=== PATIENT | male | born 1975 | race Caucasian/White ===

== ENCOUNTER 2024-10-14 05:01 | Emergency (ER) | payer OTHER, SELFPAY ==
[2024-10-14 05:12] VITALS: BP 135/90; PULSE 76; TEMP 36.8; O2SAT 97; BMI 33.1
--- NOTE | 2024-10-14 05:21 | CT_ITS ---
The [address] [address] Patient Name: RENZO TEAGUE MRN: [id number] date: 1975 Sex: M Assigned Patient Location: ER Current Patient Location: ER Accession/Order Number: [id number] Exam Date: 10/14/2024 08:15 Report Date: 10/14/2024 09:06 At the request of: ANDRÉS MARKER Procedure: CT abdomen pelvis w con EXAM: CT abdomen pelvis w con HISTORY: rectal pain, chills PO and IV contrast please COMPARISON: None. TECHNIQUE: Routine CT abdomen/pelvis with intravenous contrast. FINDINGS: Lung bases: Mild dependent atelectasis at both lung bases. Solid organs: The liver is fatty infiltrated. There is a 2.8 mm hypodense subcapsular lesion at the dome of the liver which is too small to further characterize however most commonly a cyst. There is a 1.3 cm focus of vague enhancement at the dome of the liver (series 3 image 7). The gallbladder, biliary tree, pancreas and bilateral adrenal glands are unremarkable. There are a few calcified granuloma within the spleen. There are bilateral renal cysts measuring 0.6 cm on the right and 1.1 cm on the left. Bowel: There is a 1.2 x 2 x 1.5 cm fluid collection near the anus. Correlate with clinical findings of a perianal abscess (axial image 144, coronal image 76 and sagittal image 55). The rectum is unremarkable. The bowel gas pattern is nonobstructive with a moderately large amount of stool within the colon. There are colonic diverticula without diverticulitis. The appendix is unremarkable. The distal esophagus, stomach and small bowel are unremarkable. Vasculature: Mild atheromatous plaque along the abdominal aorta and iliac arteries. The IVC is unremarkable. Inflammation: There is no free air or free fluid. Lymphadenopathy: There are no pathologically enlarged lymph nodes. Pelvis: The unopacified urinary bladder is unremarkable. The prostate gland is mildly enlarged. There is fat extending into both internal canals. Osseous: There is a small amount of fat extending into the umbilicus. Moderately severe discogenic degenerative changes at L5-S1. CT/CT abdomen pelvis w con IMPRESSION: There is a 1.2 x 2 x 1.5 cm fluid collection near the anus. Correlate with clinical findings of a perianal abscess (axial image 144, coronal image 76 and sagittal image 55). The rectum is unremarkable. The bowel gas pattern is nonobstructive with a moderately large amount of stool within the colon. There are colonic diverticula without diverticulitis. The liver is fatty infiltrated. There is a 2.8 mm hypodense subcapsular lesion at the dome of the liver which is too small to further characterize however most commonly a cyst. There is a 1.3 cm focus of vague enhancement at the dome of the liver processes series 3 image 7). A scheduled MRI the liver is recommended for detailed evaluation. There are bilateral renal cysts measuring 0.6 cm on the right and 1.1 cm on the left. The prostate gland is mildly enlarged. There is fat extending into both inguinal canals. There are moderately severe discogenic degenerative changes at L5-S1. Electronically authenticated by: PETE PHILLIP Date: 10/14/2024 09:06
--- NOTE | 2024-10-14 05:23 | ED_ITS ---
HPI HPI - General Adult General Chief complaint: Skin/Abscess/Foreign Body Stated complaint: SKIN OTHER Time Seen by Provider: 10/14/24 05:07 Source: patient Mode of arrival: walk-in History of Present Illness HPI narrative: This 49-year-old male with a history of a pilonidal cyst and a left inguinal hernia presents for evaluation of rectal pain. The patient states he has been having pain for the past 4 to 7 days but it has become increasingly more painful to sit and/or get up from a sitting position. He has not had any bloody stool or mucoid stool. He states he has been having some chills and sweats. He had a history of a pilonidal cyst in his 20s that he never had taking care of and was concerned that it was related to that. He has not had any nausea or vomiting. He denies any urinary symptoms. He denies any anal intercourse or manipulation. He denies any weight loss. He has never had a colonoscopy but knows that he needs to get one done in the near future. Related Data Home Medications ?Medication ?Instructions ?Recorded ?Confirmed aspirin 81 mg tablet,delayed mg 10/14/24 release levothyroxine 150 mcg tablet mcg 10/14/24 metoprolol tartrate 25 mg tablet mg 10/14/24 nitroglycerin 0.4 mg sublingual mg 10/14/24 tablet Allergies Allergy/AdvReac Type Severity Reaction Status Date / Time ciprofloxacin (From Cipro) Allergy Mild Swelling Verified 10/14/24 05:11 of the Eye Opioid HPI Opioid Management Most Recent Opioid Data: Last Pain Scale 2 10/14/24 05:39 10/14/24 Last MAR Pain Assessment 10/14/24 05:39 Review of Systems ROS Status of ROS 10 or more systems reviewed and unremark able except as noted in history and below PFSH PFSH Medical History (Updated 10/14/24 @ 06:53 by Shannan Hammond MD) Thyroid cancer ?C73 - Malignant neoplasm of thyroid gland (ICD-10) Surgical History (Updated 10/14/24 @ 06:02 by Du Red RN) Hx of heart artery stent ?Z95.5 - Presence of coronary angioplasty implant and graft (ICD-10) Social History Little interest or pleasure in doing things: not at all Feeling down, depressed, or hopeless: not at all Exam Narrative Exam Narrative: Exam chaperoned by Du FERREIRA Vital signs and Nursing Notes reviewed: Patient is afebrile with a normal pulse, normal blood pressure, he is not hypoxic with pulse ox of 97% on room air she was General: Awake, alert, oriented, uncomfortable when moving about the stretcher, nontoxic overweight male HEENT: Normocephalic atraumatic, mucous membranes are moist and pink, eyes are clear, normal conjunctiva, vision is grossly intact Chest: Lungs are clear to auscultation with good air entry, there is no wheezing rhonchi or rales appreciated no accessory muscle use, patient is speaking in complete sentences-no chest wall tenderness to palpation CVS: Regular rate and rhythm S1-S2, no murmurs rubs or gallops, pulses are brisk and equal bilaterally ABD: Soft, nondistended, nontender, no rebound guarding or rigidity, bowel sounds are normal, no pulsatile masses appreciated, self reducing left inguinal hernia, there is tenderness without notable deformity at the 4 to 6 o'clock position at the patient's rectum, no appreciable hemorrhoids or fissures noted, no skin breakdown or signs of necrotizing fasciitis : Normal exam, testes are descended bilaterally, self reducing left inguinal hernia noted when the patient coughs Extremities: Moving all extremities, no lower extremity tenderness or swelling noted, negative Homans' sign, pulses are brisk and equal bilaterally Skin: Normal in appearance without rash,pallor, petechiae or purpura Neuro: No focal deficits Constitutional Vital Signs, click to edit/add: Last Vital Signs Temp 98.3 F 10/14/24 05:12 Pulse 76 10/14/24 05:12 Resp 18 10/14/24 05:12 BP 135/90 10/14/24 05:12 Pulse Ox 97 10/14/24 05:12 O2 Del Method Room Air 10/14/24 05:12 Course Vital Signs Vital signs: Vital Signs Temperature 98.3 F 10/14/24 05:12 Pulse Rate 76 10/14/24 05:12 Respiratory Rate 18 10/14/24 05:12 Blood Pressure 135/90 10/14/24 05:12 Pulse Oximetry 97 10/14/24 05:12 Oxygen Delivery Method Room Air 10/14/24 05:12 Temperature 98.3 F 10/14/24 05:12 Pulse Rate 76 10/14/24 05:12 Respiratory Rate 18 10/14/24 05:12 Blood Pressure 135/90 10/14/24 05:12 Pulse Oximetry 97 10/14/24 05:12 Oxygen Delivery Method Room Air 10/14/24 05:12 Medical Decision Making MDM Narrative Medical decision making narrative: This 49-year-old male with no significant medical history presents for evaluation of pain in his rectal area/anus for the past 4 to 7 days. The pain has become increasingly severe over the past 24 to 48 hours. The patient came to the emergency department this morning after not being able to sleep all night. He is having pain with sitting and trying to get up from a sitting position. He has been having normal bowel movements. He does have a history of a pilonidal cyst in the past but his pain is not in this area. He has a history of a longstanding left inguinal hernia. This does not appear to be related to the pain he is currently having in his rectal area where it is exquisitely tender to palpation without any other notable abnormality. He did not have any hemorrhoids fissures or other concerning findings. There was nothing concerning for necrotizing fasciitis. He is not diabetic. The patient was driving and an IV was placed and he was medicated with Toradol and 3 g of IV Unasyn. CBC with differential, comprehensive metabolic profile, lactic acid and CT scan with oral and IV contrast was ordered. The patient's white count is minimally elevated at 12.9. Electrolytes are normal. Liver function tests are normal. Lactic acid is normal at 0.9. He will be signed out to the incoming physician at [address] scan and r eevaluation. Lab Data Labs: Lab Results 10/14/24 Range/Units 05:30 WBC 12.9 H (4.0-11.0) 10^3/uL RBC 5.14 (4.70-6.10) 10^6/uL Hgb 15.3 (14.0-18.0) g/dL Hct 44.1 (42.0-54.0) % MCV 85.8 (80.0-94.0) fL MCH 29.8 (25.9-34.0) pg MCHC 34.7 (29.9-35.2) g/dL RDW 13.6 (11.0-15.0) % Plt Count 242 (150-450) 10^3/uL MPV 9.3 L (9.5-13.5) fL Seg Neuts % (Manual) 58.0 (43.0-75.0) Lymphocytes % (Manual) 19.0 L (20.5-60.0) % Atypical Lymphs % (Man) 8.0 % Monocytes % (Manual) 13.0 H (1.7-12.0) % Eosinophils % (Manual) 2.0 (0.9-7.0) % Basophils % (Manual) 0.0 L (0.2-2.0) % Neutrophils # (Manual) 7.48 H (1.4-6.5) 10^3/uL Lymphocytes # (Manual) 2.45 (1.20-3.80) 10^3/uL Abs Atypical Lymphs Man 1.03 Monocytes # (Manual) 1.67 H (0.30-0.80) 10^3/uL Eosinophils # (Manual) 0.25 (0.00-0.70) 10^3/uL Basophils # (Manual) 0.00 (0.00-0.10) 10^3/uL Hypersegmented Neuts 2+ Toxic Granulation 2+ Sodium 139 (136-145) mmol/L Potassium 3.7 (3.5-5.1) mmol/L Chloride 105 (98-107) mmol/L Carbon Dioxide 27.5 (21.0-32.0) mmol/L Anion Gap 10.2 BUN 12.0 (7.0-18.0) mg/dL Creatinine 1.23 (0.70-1.30) mg/dL Est GFR ( Amer) >60 (>=60 mL/min/1.73m^2) Est GFR (Non-Af Amer) >60 (>=60 mL/min/1.73m^2) BUN/Creatinine Ratio 9.8 Glucose 108 H (74-106) mg/dL Lactate 0.9 (0.4-2.0) mmol/L Calcium 9.1 (8.5-10.1) mg/dL Total Bilirubin 0.3 (0.2-1.0) mg/dL AST 16 (15-37) U/L ALT 29 (16-63) U/L Alkaline Phosphatase 52 (46-116) U/L Total Protein 7.3 (6.4-8.2) g/dL Albumin 3.8 (3.4-5.0) g/dL Globulin 3.5 g/dL Albumin/Globulin Ratio 1.1 Discharge Plan Discharge Chief Complaint: Skin/Abscess/Foreign Body Clinical Impression: Anal or rectal pain Patient Disposition: Still a Patient Time of Disposition Decision: 06:53 Prescriptions / Home Meds: No Action aspirin 81 mg tablet,delayed release (DR/EC) levothyroxine 150 mcg tablet nitroglycerin 0.4 mg tablet, sublingual metoprolol tartrate 25 mg tablet Print Language: Kazakh Referrals: [facility] [Primary Care Provider] - 1 week
[2024-10-14 05:35] LABS: Hematocrit 44.1 % (42.0-54.0); Hemoglobin 15.3 g/dL (14.0-18.0); Mean Corpuscular HGB Conc 34.7 g/dL (29.9-35.2); Mean Corpuscular Hemoglobin 29.8 pg (25.9-34.0); Mean Corpuscular Volume 85.8 fL (80.0-94.0); Mean Platelet Volume 9.3 fL (9.5-13.5); Platelet Count 242 10^3/uL (150-450); Red Blood Count 5.14 10^6/uL (4.70-6.10); Red Cell Distribution Width 13.6 % (11.0-15.0); White Blood Count 12.9 10^3/uL (4.0-11.0)
[2024-10-14] MEDS: KETOROLAC TROMETHAMINE 30 MG/ML VIAL IVP (05:39)
[2024-10-14] MEDS: AMPICILLIN SODIUM/SULBACTAM NA 3 GM in 0.9 % SODIUM CHLORIDE 100 ML IV (05:50)
[2024-10-14 05:53] LABS: Atypical Lymphocytes Abs Man 1.03; Eosinophils Absolute Manual 0.25 10^3/uL (0.00-0.70); Hypersegmented Neutrophils 2+; Lymphocytes Absolute Manual 2.45 10^3/uL (1.20-3.80); Monocytes Absolute Manual 1.67 10^3/uL (0.30-0.80); Segmented Neut Absolute Manual 7.48 10^3/uL (1.4-6.5); Toxic Granulation 2+
[2024-10-14 05:54] LABS: Alanine Aminotransferase 29 U/L (16-63); Albumin Globulin Ratio 1.1; Albumin Level 3.8 g/dL (3.4-5.0); Alkaline Phosphatase 52 U/L (46-116); Anion Gap 10.2; Aspartate Amino Transferase 16 U/L (15-37); BUN Creatinine Ratio 9.8; Bilirubin Total 0.3 mg/dL (0.2-1.0); Calcium 9.1 mg/dL (8.5-10.1); Carbon Dioxide 27.5 mmol/L (21.0-32.0); Chloride 105 mmol/L (98-107); Estimated GFR (African America >60 (>=60 mL/min/1.73m^2); Estimated GFR (Non-African Ame >60 (>=60 mL/min/1.73m^2); Globulin 3.5 g/dL; Glucose 108 mg/dL (74-106); Potassium 3.7 mmol/L (3.5-5.1); Sodium 139 mmol/L (136-145); Total Protein 7.3 g/dL (6.4-8.2)
[2024-10-14 05:55] LABS: Lactate/Lactic Acid 0.9 mmol/L (0.4-2.0)
--- NOTE | 2024-10-14 05:58 | PC.NURSE ---
the electronic gluing machine operator in room talking to patient about drinking oral contrast for his ct, which will take this morning around 07:30am
--- NOTE | 2024-10-14 10:25 | ED.GENADUL1 ---
HPI HPI - General Adult General Chief complaint: Skin/Abscess/Foreign Body Stated complaint: SKIN OTHER Time Seen by Provider: 10/14/24 05:07 Source: patient Mode of arrival: walk-in History of Present Illness HPI narrative: 49-year-old male presents to the emergency department and was initially seen by Dr. Hammond and signed out to me after discussing the case with her thoroughly. Please see her full history and physical exam. Related Data Home Medications ?Medication ?Instructions ?Recorded ?Confirmed aspirin 81 mg tablet,delayed mg 10/14/24 release levothyroxine 150 mcg tablet mcg 10/14/24 metoprolol tartrate 25 mg tablet mg 10/14/24 nitroglycerin 0.4 mg sublingual mg 10/14/24 tablet Previous Rx's ?Medication ?Instructions ?Recorded amoxicillin 875 mg-potassium 1 tab PO BID #14 tabs 10/14/24 clavulanate 125 mg tablet Allergies Allergy/AdvReac Type Severity Reaction Status Date / Time ciprofloxacin (From Cipro) Allergy Mild Swelling Verified 10/14/24 05:11 of the Eye Opioid HPI Opioid Management Most Recent Opioid Data: Last Pain Scale 2 10/14/24 05:39 10/14/24 Last MAR Pain Assessment 10/14/24 05:39 PFSH PFSH Medical History (Updated 10/14/24 @ 10:19 by Rom Kessler MD) Thyroid cancer ?C73 - Malignant neoplasm of thyroid gland (ICD-10) Surgical History (Updated 10/14/24 @ 06:02 by Du Red RN) Hx of heart artery stent ?Z95.5 - Presence of coronary angioplasty implant and graft (ICD-10) Social History Little interest or pleasure in doing things: not at all Feeling down, depressed, or hopeless: not at all Exam Constitutional Vital Signs, click to edit/add: Last Vital Signs Temp 98.3 F 10/14/24 05:12 Pulse 76 10/14/24 05:12 Resp 18 10/14/24 05:12 BP 135/90 10/14/24 05:12 Pulse Ox 97 10/14/24 05:12 O2 Del Method Room Air 10/14/24 05:12 Course Vital Signs Vital signs: Vital Signs Temperature 98.3 F 10/14/24 05:12 Pulse Rate 76 10/14/24 05:12 Respiratory Rate 18 10/14/24 05:12 Blood Pressure 135/90 10/14/24 05:12 Pulse Oximetry 97 10/14/24 05:12 Oxygen Delivery Method Room Air 10/14/24 05:12 Temperature 98.3 F 10/14/24 05:12 Pulse Rate 76 10/14/24 05:12 Respiratory Rate 18 10/14/24 05:12 Blood Pressure 135/90 10/14/24 05:12 Pulse Oximetry 97 10/14/24 05:12 Oxygen Delivery Method Room Air 10/14/24 05:12 Medical Decision Making MDM Narrative Medical decision making narrative: Perianal abscess is identified on the CAT scan. Case discussed with Dr. Voss who recommends being discharged home on Augmentin. The patient has already received Unasyn here and the patient is referred to general surgery for outpatient follow-up. Treatment diagnosis and follow-up were discussed with the patient. Lab Data Lab results reviewed: Yes I reviewed the patient's lab results Labs: Lab Results 10/14/24 Range/Units 05:30 WBC 12.9 H (4.0-11.0) 10^3/uL RBC 5.14 (4.70-6.10) 10^6/uL Hgb 15.3 (14.0-18.0) g/dL Hct 44.1 (42.0-54.0) % MCV 85.8 (80.0-94.0) fL MCH 29.8 (25.9-34.0) pg MCHC 34.7 (29.9-35.2) g/dL RDW 13.6 (11.0-15.0) % Plt Count 242 (150-450) 10^3/uL MPV 9.3 L (9.5-13.5) fL Seg Neuts % (Manual) 58.0 (43.0-75.0) Lymphocytes % (Manual) 19.0 L (20.5-60.0) % Atypical Lymphs % (Man) 8.0 % Monocytes % (Manual) 13.0 H (1.7-12.0) % Eosinophils % (Manual) 2.0 (0.9-7.0) % Basophils % (Manual) 0.0 L (0.2-2.0) % Neutrophils # (Manual) 7.48 H (1.4-6.5) 10^3/uL Lymphocytes # (Manual) 2.45 (1.20-3.80) 10^3/uL Abs Atypical Lymphs Man 1.03 Monocytes # (Manual) 1.67 H (0.30-0.80) 10^3/uL Eosinophils # (Manual) 0.25 (0.00-0.70) 10^3/uL Basophils # (Manual) 0.00 (0.00-0.10) 10^3/uL Hypersegmented Neuts 2+ Toxic Granulation 2+ Sodium 139 (136-145) mmol/L Potassium 3.7 (3.5-5.1) mmol/L Chloride 105 (98-107) mmol/L Carbon Dioxide 27.5 (21.0-32.0) mmol/L Anion Gap 10.2 BUN 12.0 (7.0-18.0) mg/dL Creatinine 1.23 (0.70-1.30) mg/dL Est GFR ( Amer) >60 (>=60 mL/min/1.73m^2) Est GFR (Non-Af Amer) >60 (>=60 mL/min/1.73m^2) BUN/Creatinine Ratio 9.8 Glucose 108 H (74-106) mg/dL Lactate 0.9 (0.4-2.0) mmol/L Calcium 9.1 (8.5-10.1) mg/dL Total Bilirubin 0.3 (0.2-1.0) mg/dL AST 16 (15-37) U/L ALT 29 (16-63) U/L Alkaline Phosphatase 52 (46-116) U/L Total Protein 7.3 (6.4-8.2) g/dL Albumin 3.8 (3.4-5.0) g/dL Globulin 3.5 g/dL Albumin/Globulin Ratio 1.[address] scan - abdomen: Radiologist's impression: ITS Impressions Abdomen/Pelvis CT 10/14/24 05:21 IMPRESSION: There is a 1.2 x 2 x 1.5 cm fluid collection near the anus. Correlate with clinical findings of a perianal abscess (axial image 144, coronal image 76 and sagittal image 55). The rectum is unremarkable. The bowel gas pattern is nonobstructive with a moderately large amount of stool within the colon. There are colonic diverticula without diverticulitis. The liver is fatty infiltrated. There is a 2.8 mm hypodense subcapsular lesion at the dome of the liver which is too small to further characterize however most commonly a cyst. There is a 1.3 cm focus of vague enhancement at the dome of the liver processes series 3 image 7). A scheduled MRI the liver is recommended for detailed evaluation. There are bilateral renal cysts measuring 0.6 cm on the right and 1.1 cm on the left. The prostate gland is mildly enlarged. There is fat extending into both inguinal canals. There are moderately severe discogenic degenerative changes at L5-S1. Electronically authenticated by: PETE PHILLIP Date: 10/14/2024 09:06 Discharge Plan Discharge Chief Complaint: Skin/Abscess/Foreign Body Clinical Impression: Abscess, perianal Patient Disposition: Home, Self-Care Time of Disposition Decision: 06:53 Condition: Good Mode of Transportation: Private Vehicle Prescriptions / Home Meds: New amoxicillin-pot clavulanate 875-125 mg tablet 1 tab PO BID Qty: 14 0RF No Action aspirin 81 mg tablet,delayed release (DR/EC) levothyroxine 150 mcg tablet nitroglycerin 0.4 mg tablet, sublingual metoprolol tartrate 25 mg tablet Print Language: Spanish Instructions: Abscess (ED), [place] (DC) Referrals: [facility] [Primary Care Provider] - 1 week Du Dowell MD [Physician] - Du Cramer MD [Physician] -
== END 2024-10-14 10:29 | disposition home or self-care (01) ==
PROVIDERS: Emergency Medicine; Emergency Provider Emergency Medicine
DX: K61.0 Anal abscess (principal); Z95.5 Presence of coronary angioplasty implant and graft; K40.90 Unilateral inguinal hernia, without obstruction or gangrene, not specified as recurrent
CPT/HCPCS: 36415; 74177; 80053; 83605; 85007; 85027; 96365; 96375; 99285; J0295; J1885; Q9966; Q9967